=== PATIENT | male | born 1975 | race Caucasian/White ===

== ENCOUNTER 2020-04-28 16:38 | Emergency (ER) | payer SELFPAY ==
[2020-04-28] MEDS ORDERED: Acetaminophen/HYDROcodone 325-5 MG Tab PO ONE (16:39)
[2020-04-28] MEDS ORDERED: Ondansetron 4 MG Tab.DIS PO ONE (16:39)
[2020-04-28] MEDS ORDERED: Ketorolac 10 MG Tab PO ONE (16:39)
[2020-04-28] MEDS: Ondansetron 4 MG/2 ML SDV IVPUSH ONE (17:12)
[2020-04-28] MEDS: Ketorolac 30 MG/ML SDV IVPUSH ONE (17:12)
--- NOTE | 2020-04-28 17:13 | EDM.PDOC ---
ED HPI GENERAL MEDICAL PROBLEM - General Chief Complaint: Abdominal Pain Stated Complaint: abd pain Time Seen by Provider: 04/28/20 16:47 Source of Information: Reports: Patient, Family History Limitations: Reports: No Limitations - History of Present Illness INITIAL COMMENTS - FREE TEXT/NARRATIVE: Patient to the emergency department where he advises he has right flank pain raymond t started about 10:00 this morning the patient does advise he has had nausea without vomiting. No diarrhea no constipation. The patient is unsure of his stool color, the patient is also unsure of any hematuria. The patient advises that the pain is on the right lower flank that radiates to the right groin area. The patient denies any fever chills, denies any other symptoms Onset: Today Onset Date: 04/28/20 Onset Time: 10:00 Duration: Getting Worse Location: Reports: Other (Right flank) Quality: Reports: Stabbing Improves with: Reports: None Worsens with: Reports: None Associated Symptoms: Reports: Nausea/Vomiting (Nausea no vomiting). 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) (None) Right Abdominal Pain Score (Numeric/FACES): 8 - Related Data Allergies Allergy/AdvReac Type Severity Reaction Status Date / Time No Known Allergies Allergy Verified 04/28/20 16:45 Home Meds: Home Meds Ketorolac [Toradol] 10 mg PO TID PRN 5 Days #15 tab 04/28/20 [Rx] Ondansetron [Zofran ODT] 4 mg PO Q6H PRN 5 Days #12 tab.dis 04/28/20 [Rx] Tamsulosin HCl [Flomax] 0.4 mg PO BEDTIME 5 Days #5 cap.er.24h 04/28/20 [Rx] Past Medical History - Past Health History Medical/Surgical History: Denies Medical/Surgical History - Past Surgical History Head Surgeries/Procedures: Reports: None Social & Family History - Family History Cardiac: Reports: Hypertension Endocrine/Metabolic: Reports: Diabetes, type II - Tobacco Use Smoking Status *Q: Never Smoker - Caffeine Use Caffeine Use: Reports: None - Recreational Drug Use Recreational Drug Use: No - Living Situation & Occupation Living situation: Reports: Single, Alone ED ROS GENERAL - Review of Systems Review Of Systems: See Below Constitutional: Reports: No Symptoms. Denies: Fever, Chills HEENT: Reports: No Symptoms Respiratory: Reports: No Symptoms. Denies: Shortness of Breath Cardiovascular: Reports: No Symptoms. Denies: Chest Pain GI/Abdominal: Reports: Nausea. Denies: Abdominal Pain, Vomiting : Reports: Flank Pain (Right). Denies: Frequency, Hematuria, Urgency, Urinary Retention Musculoskeletal: Reports: No Symptoms. Denies: Neck Pain, Back Pain Skin: Reports: No Symptoms Neurological: Reports: No Symptoms Psychiatric: Reports: No Symptoms ED EXAM, GI/ABD - Physical Exam Exam: See Below Exam Limited By: No Limitations General Appearance: Alert, WD/WN, No Apparent Distress Ears: Normal External Exam Nose: Normal Inspection Throat/Mouth: Normal Inspection, Normal Voice, No Airway Compromise Head: Atraumatic, Normocephalic Neck: Normal Inspection, Supple, Non-Tender, Full Range of Motion Respiratory/Chest: No Respiratory Distress, Lungs Clear, Normal Breath Sounds Cardiovascular: Normal Peripheral Pulses, Regular Rate, Rhythm, No Murmur GI/Abdominal Exam: Soft, Non-Tender Back Exam: Normal Inspection, Full Range of Motion. No: CVA Tenderness (L), CVA Tenderness (R) Extremities: Normal Inspection, Normal Range of Motion, Non-Tender, No Pedal Edema, Normal Capillary Refill Neurological: Alert, Oriented, Normal Cognition, Normal Gait Psychiatric: Normal Affect, Normal Mood Skin Exam: Warm, Dry, Intact, Normal Color Course - Vital Signs Text/Narrative:: 1711 the patient was evaluated in the emergency department CT the abdomen pelvis was done and there does appear to be a right distal ureter calculi, however radiology reading still pending. Patient's labs have been obtained and are being processed at this point. The patient has an IV established and Toradol 30 mg IV and Zofran 4 mg IV are being administered. 1750 the patient's CBC is essentially negative, urinalysis does show some blood without any nitrates or leukocyte esterase, the general chemistries his blood sugar is elevated creatinine is 1.6. CT of the abdomen pelvis was read by the radiologist as a mid ureter 2 to 3 mm stone. The patient has complete relief at this point. The patient will be discharged with Toradol 10 mg 3 times daily as needed and Delco 5/325 mg 1 every 6 hours as needed for pain the patient will also be given Zofran 4 mg every 6 hours as needed for any nausea vomiting. The patient will also be given Flomax 0.4 mg 1 nightly for 5 days. The patient is to follow-up in the clinic this week for reevaluation he is to call Friday morning for an appointment time. The patient is also advised to return to the emergency department sooner if worse or any problems Last Recorded V/S: Last Vital Signs Temp 35.3 C L 04/28/20 16:45 Pulse 78 04/28/20 16:45 Resp 18 04/28/20 16:45 BP 124/71 04/28/20 16:45 Pulse Ox 100 04/28/20 16:45 - Orders/Labs/Meds Orders: Active Orders 24 hr Category Date Time Status Abdomen Pelvis wo Cont [CT] Stat Exams 04/28/20 16:51 Taken Sodium Chloride 0.9% [Normal Saline] 1,000 ml Med 04/28/20 17:00 Active IV ASDIRECTED Tamsulosin [Flomax] Med 04/28/20 18:04 Once 0.4 mg PO ONETIME ONE Medication Orders Sodium Chloride (Normal Saline) 1,000 mls @ 125 mls/hr IV ASDIRECTED CARLOS Last Admin: 04/28/20 17:14 Dose: 125 mls/hr Documented by: MAGGY Labs: Laboratory Tests 04/28/20 04/28/20 04/28/20 Range/Units 16:51 17:03 17:03 WBC 11.6 H (5.0-10.0) 10^3/uL RBC 5.40 (4.50-6.00) 10^6/uL Hgb 15.7 (14.0-18.0) g/dL Hct 47.1 (40.0-54.0) % MCV 87.2 (82.0-94.0) fL MCH 29.1 (27.0-32.0) pg MCHC 33.3 (33.0-38.0) g/dL RDW Coeff of Conor 13.0 (11.0-15.0) % Plt Count 312 (150-400) 10^3/uL Neut % (Auto) 84.1 (35-85) % Lymph % (Auto) 11.0 (10-55) % [place] % (Auto) 4.6 (0-16) % Eos % (Auto) 0.1 (0-5) % Baso % (Auto) 0.2 (0-3) % Neut # (Auto) 9.79 H (1.80-7.00) 10^3/uL Lymph # (Auto) 1.28 (1.00-4.80) 10^3/uL [place] # (Auto) 0.54 (0.00-0.80) 10^3/uL Eos # (Auto) 0.01 (0.00-0.45) 10^3/uL Baso # (Auto) 0.02 10^3/uL Sodium 137 (136-145) mEq/L Potassium 4.9 (3.5-5.0) mEq/L Chloride 101 (98-106) mEq/L Carbon Dioxide 25 (21-32) mmol/L BUN 13 (7-18) mg/dL Creatinine 1.6 H (0.7-1.3) mg/dL Est Cr Clr Drug Dosing 60.83 mL/min Estimated GFR (MDRD) 47 L (>=60) mL/min Glucose 203 H (75-99) mg/dL Calcium 9.0 (8.4-10.1) mg/dL Total Bilirubin 0.4 (0.0-1.0) mg/dL AST 21 (15-37) U/L ALT 32 (12-78) U/L Alkaline Phosphatase 127 H (46-116) U/L Total Protein 8.0 (6.4-8.2) g/dL Albumin 3.8 (3.4-5.0) g/dL Urine Color Yellow (YELLOW) Urine Appearance Slightly cloudy (CLEAR) Urine pH 6.5 (4.5-8.0) Ur Specific [place] 1.025 H (1.003-1.020) Urine Protein Trace H (NEGATIVE) mg/dL Urine Glucose (UA) 500 H (NEGATIVE) mg/dL Urine Ketones 15 H (NEGATIVE) mg/dL Urine Occult Blood Large H (NEGATIVE) Urine Nitrite Negative (NEGATIVE) Urine Bilirubin Negative (NEGATIVE) Urine Urobilinogen 0.2 (0.2-1.0) EU/dL Ur Leukocyte Esterase Negative (NEGATIVE) Urine RBC 75-100 H (0-5) /HPF Urine WBC Not seen (0-5) /HPF Ur Epithelial Cells Occasional H (NOT SEEN) /HPF Urine Mucus Moderate H (NOT SEEN) /HPF Meds: Medications Generic Name Dose Route Start Last Admin Trade Name Freq PRN Reason Stop Dose Admin Sodium Chloride 1,000 mls @ 125 mls/hr 04/28/20 17:00 04/28/20 17:14 Normal Saline IV 125 mls/hr ASDIRECTED CARLOS Administration Discontinued Medications Generic Name Dose Route Start Last Admin Trade Name Freq PRN Reason Stop Dose Admin Hydrocodone Bitart/Acetaminophen 2 packet 04/28/20 17:59 Take Home: Acetaminophen/Hydrocod, 2 Tab Pack PO 04/28/20 18:00 ONETIME ONE Ketorolac Tromethamine 30 mg 04/28/20 16:52 04/28/20 17:12 Toradol IVPUSH 04/28/20 16:53 30 mg ONETIME ONE Administration Ketorolac Tromethamine 1 packet 04/28/20 17:59 Take Home: Ketorolac 10 Mg, 4 Tab Pack PO 04/28/20 18:00 ONETIME ONE Ondansetron HCl 4 mg 04/28/20 16:56 04/28/20 17:12 Zofran IVPUSH 04/28/20 16:57 4 mg ONETIME ONE Administration Ondansetron HCl 2 packet 04/28/20 17:59 Take Home: Ondansetron Odt 4 Mg, 2 Tab Pack PO 04/28/20 18:00 ONETIME ONE Departure - Departure Time of Disposition: 17:52 Disposition: Home, Self-Care 01 Condition: Good Clinical Impression: Right ureteral calculus - Discharge Information *PRESCRIPTION DRUG MONITORING PROGRAM REVIEWED*: Not Applicable *COPY OF PRESCRIPTION DRUG MONITORING REPORT IN PATIENT [id number]: Not Applicable Prescriptions: Tamsulosin HCl [Flomax] 0.4 mg PO BEDTIME 5 Days #5 cap.er.24h Ketorolac [Toradol] 10 mg PO TID PRN 5 Days #15 tab PRN Reason: Pain (Moderate 4-6) Ondansetron [Zofran ODT] 4 mg PO Q6H PRN 5 Days #12 tab.dis PRN Reason: Nausea/Vomiting Instructions: Kidney Stones Forms: ED Department Discharge Additional Instructions: Be sure to stay hydrated Toradol 10 mg 3 times a day as needed for mild to moderate pain Delco 5/325 mg 1 every 6 hours as needed for severe pain Zofran 4 mg every 6 hours as needed for any nausea or vomiting Flomax 0.4 mg 1 at bedtime Follow-up with your family doctor on Friday call early Friday morning for an appointment time Return to the emergency department sooner if worse or any problems Sepsis Event Note (ED) - Evaluation Sepsis Screening Result: No Definite Risk - Focused Exam Vital Signs: Vital Signs Temp Pulse Resp BP Pulse Ox 04/28/20 16:45 35.3 C L 78 18 124/71 100 - Problem List & Annotations (1) Right ureteral calculus SNOMED Code(s): 26121177 Code(s): N20.1 - CALCULUS OF URETER Status: Acute Priority: Medium - Problem List Review Problem List Initiated/Reviewed/Updated: Yes - My Orders Last 24 Hours: My Active Orders 04/28/20 16:51 Abdomen Pelvis wo Cont [CT] Stat 04/28/20 17:00 Sodium Chloride 0.9% [Normal Saline] 1,000 ml IV ASDIRECTED 04/28/20 18:04 Tamsulosin [Flomax] 0.4 mg PO ONETIME ONE - Assessment/Plan Last 24 Hours: My Active Orders 04/28/20 16:51 Abdomen Pelvis wo Cont [CT] Stat 04/28/20 17:00 Sodium Chloride 0.9% [Normal Saline] 1,000 ml IV ASDIRECTED 04/28/20 18:04 Tamsulosin [Flomax] 0.4 mg PO ONETIME ONE Plan: As above
[2020-04-28] MEDS: Sodium Chloride 0.9% 1,000 ML IV SCH (17:14)
[2020-04-28] MEDS: Tamsulosin 0.4 MG Cap.ER PO ONE (18:25)
[2020-04-28] MEDS: Take Home: Acetaminophen/HYDROcodone 325-5 MG, 2 Tab Pack PO ONE (18:30)
[2020-04-28] MEDS: Take Home: Ondansetron 4 MG Tab.DIS, 2 Tab Pack PO ONE (18:30)
[2020-04-28] MEDS: Take Home: Ketorolac 10 MG Tab, 4 Tab Pack PO ONE (18:30)
== END 2020-04-28 18:39 | disposition home or self-care (01) ==
LOC: CC.ED 16:38
DX: N13.2 Hydronephrosis with renal and ureteral calculous obstruction (principal)
CPT/HCPCS: 36415; 74176; 80053; 81001; 85025; 96374; 96375; 99284-25; A9270-GY; J1885; J2405; J7030